=== PATIENT | male | born 1960 | race Caucasian/White ===

== ENCOUNTER 2017-10-10 13:38 | Emergency (ER) | payer OTHER ==
[2017-10-10 13:50] VITALS: BP 145/87; PULSE 64; RESP 16; TEMP 98.1; O2SAT 98
--- NOTE | 2017-10-10 14:04 | EDPHY ---
H & P Time Seen by Provider: 10/10/17 13:49 HPI/ROS: CHIEF COMPLAINT: Right calf pain HISTORY OF PRESENT ILLNESS: 57-year-old male presents with right calf pain. He was playing tennis just prior to arrival. He was running forward and felt a snap in the middle aspect of his calf. Immediate onset of moderate pain and difficulty ambulating. No associated symptoms and no prior injury. ROS: No numbness, weakness, bleeding, syncopal episode, other injury. Past Medical/Surgical History: Denies Social History: Smoking Status: Never smoked Physical Exam: Alert and oriented, pleasant Extremities: Right lower extremity-normal inspection, tenderness over the mid aspect of the calf, without swelling; Achilles tendon is intact and nontender, calf compression causes plantar fraction of the foot; right knee/ankle nontender , no effusion or swelling, ROM intact Skin: Intact Neuro: Motor and sensory intact Vascular: Capillary refill brisk distally Constitutional: Initial Vital Signs Temperature (C) 36.7 C 10/10/17 13:47 Heart Rate 64 10/10/17 13:47 Respiratory Rate 16 10/10/17 13:47 Blood Pressure 145/87 H 10/10/17 13:47 O2 Sat (%) 98 10/10/17 13:47 O2 Delivery Mode Room Air Allergies/Adverse Reactions: No Known Allergies Allergy (Unverified 05/22/13 21:51) Home Medications: Medication Instructions Recorded NK [No Known Home Meds] 10/10/17 Medical Decision Making ED Course/Re-evaluation: This patient presents with a right calf strain. The Achilles tendon is intact and I do not suspect fracture. He was placed in the Bauman boot and on crutches. - Data Points Medications Given: Discontinued Medications Ibuprofen (Motrin) 600 mg PO EDNOW ONE Stop: 10/10/17 14:07 Last Admin: 10/10/17 14:11 Dose: 600 mg Departure - Departure Disposition: Home, Routine, Self-Care Clinical Impression: Strain of calf muscle Qualifiers: Encounter type: initial encounter Laterality: right Qualified Code(s): S86.811A - Strain of other muscle(s) and tendon(s) at lower leg level, right leg , initial encounter Condition: Good Instructions: Crutch Instructions (ED), Muscle Strain (ED) Additional Instructions: Ibuprofen 600 mg 3 times daily while the pain persists. Ice for 20 min every 1-2 hours for pain and swelling. Weight-bearing as tolerated. Return for worsening symptoms or any concerns. Referrals: Juan Francisco Marquez MD [Medical Doctor] - 5-7 days, if not improved
[2017-10-10] MEDS ORDERED: IBUPROFEN 600 MG TAB PO ONE (14:06)
== END 2017-10-10 14:30 | disposition home or self-care (01) ==
LOC: CED 13:38
DX: S86.811A Strain of other muscle(s) and tendon(s) at lower leg level, right leg, initial encounter (principal); X58.XXXA Exposure to other specified factors, initial encounter; Y99.8 Other external cause status; Y93.02 Activity, running
CPT/HCPCS: L4386